=== PATIENT | female | born 1990 | race Caucasian/White ===

== ENCOUNTER 2021-09-13 13:45 | Outpatient (CLI) | payer OTHER | END 2021-09-13 23:59 | disposition home or self-care (01) | LOC: RAD 13:45 | PROVIDERS: ATTEND Psychiatry & Neurology Neurology | DX: S06.9X9D Unspecified intracranial injury with loss of consciousness of unspecified duration, subsequent encounter (principal); X58.XXXA Exposure to other specified factors, initial encounter; Y92.89 Other specified places as the place of occurrence of the external cause; Y93.89 Activity, other specified; Y99.8 Other external cause status | CPT/HCPCS: 95816 ==